=== PATIENT | female | born 1995 | race Caucasian/White ===

== ENCOUNTER → 2018-10-01 | Outpatient (CLI) | payer OTHER ==
[2018-10-01 15:50] LABS: MEAN CORPUSCULAR HEMOGLOBIN 29.1 pg (27.0-34.8); MEAN CORPUSCULAR HGB CONC 33.5 g/dL (32.4-35.8); MEAN CORPUSCULAR VOLUME 86.8 fL (80-100); MEAN PLATELET VOLUME 10.2 fL (7.4-10.4); PLATELET COUNT 220 x10^3/uL (130-400); RED BLOOD COUNT 4.26 x10^6/uL (3.82-5.3)
== END | disposition home or self-care (01) ==
LOC: CFH 13:49
PROVIDERS: ATTEND Obstetrics & Gynecology
DX: Z34.82 Encounter for supervision of other normal pregnancy, second trimester (principal)
CPT/HCPCS: 36415; 82950; 85027; 86592